=== PATIENT | male | born 1950 | race Caucasian/White ===

== ENCOUNTER 2022-08-19 20:30 | Inpatient (IN) | payer OTHER ==
[2022-08-19 21:06] VITALS: BMI 22.9
[2022-08-19 22:08] LABS: BASO % 0.9 % (0-2.0); EOS % 2.7 % (0-4.5); HEMATOCRIT 33.5 % (35.4-49); LYMPH % 6.4 % (8-40); MCHC 32.9 g/dl (32.0-35.9); MEAN CELL VOLUME 88.1 fl (80-96); MEAN PLT VOLUME 9.4 fl (7.5-11.1); MONO % 8.4 % (3.8-10.2); NEUT % 81.6 % (42.8-82.8); PLATELET COUNT 175 10^3/uL (134-434); RDW 18.6 % (11.9-15.9); WHITE BLOOD COUNT 9.6 K/mm3 (4.0-10.0)
[2022-08-19 22:18] LABS: CHLORIDE 97 mmol/L (98-107); SODIUM 136 mmol/L (136-145)
[2022-08-19 22:21] LABS: ALBUMIN 3.1 g/dl (3.4-5.0); ANION GAP 13 MMOL/L (8-16); BLOOD UREA NITROGEN 58.5 mg/dL (7-18); CALCIUM 8.2 mg/dL (8.5-10.1); CO2 27 mmol/L (21-32)
[2022-08-19 22:22] LABS: GLUCOSE,RANDOM 113 mg/dL (74-106)
[2022-08-19 22:23] LABS: CREATININE 3.6 mg/dL (0.55-1.3); SGPT/ALT 52 U/L (13-61)
[2022-08-19 22:25] LABS: SGOT/AST 61 U/L (15-37)
[2022-08-19 22:26] LABS: BILIRUBIN,TOTAL 1.6 mg/dL (0.2-1); TOT PROT 7.8 g/dl (6.4-8.2)
[2022-08-19 22:27] LABS: ALK PHOS 198 U/L (45-117)
[2022-08-20] MEDS ORDERED: ASPIRIN 81 MG CHEWABLE TABLETS PO ONE (00:13)
[2022-08-20 02:26] LABS: INR 1.19 (0.83-1.09); PROTHROMBIN TIME (PATIENT) 13.7 SEC (9.7-13.0)
[2022-08-20 02:29] LABS: ACTIVATED PTT 26.4 SECONDS (25.2-36.5)
[2022-08-20] MEDS ORDERED: METOPROLOL TARTRATE 50 MG TABLET (FP) ONE (05:09)
[2022-08-20] MEDS: METOPROLOL TARTRATE 25 MG TABLET (FP) GT SCH ×3 (05:26→21:34)
[2022-08-20 06:13] LABS: BASO % 1.3 % (0-2.0); EOS % 4.4 % (0-4.5); HEMATOCRIT 34.8 % (35.4-49); HEMOGLOBIN 11.2 GM/dL (11.7-16.9); LYMPH % 6.3 % (8-40); MCH 28.4 pg (25.7-33.7); MCHC 32.1 g/dl (32.0-35.9); MEAN CELL VOLUME 88.5 fl (80-96); MEAN PLT VOLUME 9.7 fl (7.5-11.1); MONO % 8.5 % (3.8-10.2); NEUT % 79.5 % (42.8-82.8); PLATELET COUNT 196 10^3/uL (134-434); RBC 3.94 M/mm3 (4.00-5.60); RDW 18.7 % (11.9-15.9); WHITE BLOOD COUNT 8.8 K/mm3 (4.0-10.0)
[2022-08-20 07:17] LABS: CO2 23 mmol/L (21-32); GLUCOSE,RANDOM 122 mg/dL (74-106); MAGNESIUM 2.8 mg/dL (1.8-2.4)
[2022-08-20 07:27] LABS: ALK PHOS 184 U/L (45-117); ANION GAP 15 MMOL/L (8-16); BILIRUBIN,TOTAL 1.3 mg/dL (0.2-1); CALCIUM 8.1 mg/dL (8.5-10.1); CHLORIDE 100 mmol/L (98-107); CHOLESTEROL 166 mg/dL (50-200); HDL CHOLESTEROL 34 mg/dL (40-60); LDL CHOLESTEROL (ONLY SJRH) 114 mg/dL (5-100); PHOSPHOROUS 5.2 mg/dL (2.5-4.9); SGOT/AST 54 U/L (15-37); SGPT/ALT 46 U/L (13-61); SODIUM 138 mmol/L (136-145); TOT PROT 7.6 g/dl (6.4-8.2); TRIGLYCERIDES 195 mg/dL (0-150)
[2022-08-20] MEDS ORDERED: APIXABAN 2.5 MG TABLET ONE (09:16)
[2022-08-20] MEDS ORDERED: METOPROLOL TARTRATE 25 MG TABLET (FP) ONE ×2 (09:16→10:34)
[2022-08-20] MEDS ORDERED: PANTOPRAZOLE SODIUM 40 MG VIAL ONE (09:17)
[2022-08-20] MEDS ORDERED: ASPIRIN 81 MG CHEWABLE TABLETS ONE (09:17)
[2022-08-20] MEDS: ASPIRIN 81 MG CHEWABLE TABLETS GT SCH (09:32)
[2022-08-20] MEDS: APIXABAN 2.5 MG TABLET GT SCH ×2 (09:32→21:35)
[2022-08-20] MEDS: PANTOPRAZOLE SODIUM 40 MG VIAL IVPUSH SCH (09:33)
[2022-08-20] MEDS: SEVELAMER CARBONATE 0.8 GM POWDER PACKET GT SCH (12:37)
[2022-08-20] MEDS ORDERED: QUEtiapine FUMARATE 25 MG TABLET ONE (21:15)
[2022-08-20] MEDS: MELATONIN 5 MG TABLETS PO SCH (21:35)
[2022-08-20] MEDS: QUEtiapine FUMARATE 50 MG TABLET GT SCH (21:35)
[2022-08-20 22:13] LABS: EPI CELLS 6 /uL (0-25.1); HYALINE CASTS 1 /uL (0-3.1); URINE APPEARANCE CLEAR; URINE BACTERIA 24 /uL (0-1359); URINE BILIRUBIN NEGATIVE (NEGATIVE); URINE COLOR YELLOW; URINE GLUCOSE (UA) NEGATIVE (NEGATIVE); URINE KETONE NEGATIVE (NEGATIVE); URINE LEUK ESTERASE NEGATIVE (NEGATIVE); URINE NITRITE NEGATIVE (NEGATIVE); URINE PROTEIN 2+ (NEGATIVE); URINE UROBILINOGEN 0.2 mg/dL (0.2-1.0); URINE WBC 45 /uL (0-25.8)
[2022-08-20 22:31] LABS: URINE RBC 21.9 /uL (0-23.9); YEAST PRESENT (NEGATIVE)
[2022-08-21] MEDS: METOPROLOL TARTRATE 25 MG TABLET (FP) GT SCH ×2 (09:55→23:03)
[2022-08-21] MEDS: PANTOPRAZOLE SODIUM 40 MG VIAL IVPUSH SCH (09:55)
[2022-08-21] MEDS: SEVELAMER CARBONATE 0.8 GM POWDER PACKET GT SCH (09:55)
[2022-08-21] MEDS: APIXABAN 2.5 MG TABLET GT SCH ×2 (09:55→23:03)
[2022-08-21] MEDS: ASPIRIN 81 MG CHEWABLE TABLETS GT SCH (09:55)
[2022-08-21] MEDS ORDERED: MODAFINIL 200 MG PO SCH (10:00)
[2022-08-21] MEDS: CEFTRIAXONE 1 GM in DEXTROSE 5%-WATER - 50 ML IVPB SCH (10:40)
[2022-08-21] MEDS ORDERED: LEVALBUTEROL HCL 0.63 MG/3 ML VIAL.NEB. IH PRN (11:45)
[2022-08-21 12:53] LABS: CALCIUM 8.1 mg/dL (8.5-10.1)
[2022-08-21 12:57] LABS: BILIRUBIN,TOTAL 1.2 mg/dL (0.2-1); CREATININE 5.1 mg/dL (0.55-1.3); TOT PROT 7.4 g/dl (6.4-8.2)
[2022-08-21 13:06] LABS: BLOOD UREA NITROGEN 96.6 mg/dL (7-18)
[2022-08-21] MEDS ORDERED: EPOETIN ALFA-EPBX 4,000 UNIT/ML VIAL SQ ONE (17:07)
[2022-08-21] MEDS ORDERED: SODIUM CHLORIDE 250 ML IV PRN (17:07)
[2022-08-21] MEDS ORDERED: QUEtiapine FUMARATE 25 MG TABLET ONE (22:32)
[2022-08-21] MEDS: QUEtiapine FUMARATE 50 MG TABLET GT SCH (23:03)
[2022-08-21] MEDS: MELATONIN 5 MG TABLETS PO SCH (23:03)
[2022-08-21] MEDS: ATORVASTATIN CA 40 MG TABLET (FP) PO SCH (23:03)
[2022-08-22 08:50] LABS: HEMATOCRIT 32.5 % (35.4-49); HEMOGLOBIN 10.7 GM/dL (11.7-16.9); MCH 29.1 pg (25.7-33.7); MCHC 32.9 g/dl (32.0-35.9); MEAN CELL VOLUME 88.5 fl (80-96); MEAN PLT VOLUME 9.6 fl (7.5-11.1); PLATELET COUNT 245 10^3/uL (134-434); RBC 3.67 M/mm3 (4.00-5.60); RDW 18.8 % (11.9-15.9); WHITE BLOOD COUNT 8.8 K/mm3 (4.0-10.0)
[2022-08-22 09:15] LABS: CHLORIDE 100 mmol/L (98-107); SODIUM 139 mmol/L (136-145)
[2022-08-22 09:25] LABS: ALBUMIN 3.1 g/dl (3.4-5.0); ANION GAP 18 MMOL/L (8-16); CALCIUM 8.3 mg/dL (8.5-10.1); CO2 22 mmol/L (21-32); GLUCOSE,RANDOM 136 mg/dL (74-106)
[2022-08-22 09:28] LABS: CREATININE 5.6 mg/dL (0.55-1.3); SGOT/AST 46 U/L (15-37); SGPT/ALT 44 U/L (13-61)
[2022-08-22 09:30] LABS: TOT PROT 7.3 g/dl (6.4-8.2)
[2022-08-22 09:31] LABS: BILIRUBIN,TOTAL 1.2 mg/dL (0.2-1)
[2022-08-22 09:32] LABS: ALK PHOS 176 U/L (45-117)
[2022-08-22 09:38] LABS: BLOOD UREA NITROGEN 108.4 mg/dL (7-18)
[2022-08-22] MEDS: AMINO ACIDS/PROTEIN HYDROLYS 30 ML LIQUID.PKT PO SCH (10:19)
[2022-08-22] MEDS: CEFTRIAXONE 1 GM in DEXTROSE 5%-WATER - 50 ML IVPB SCH (10:19)
[2022-08-22] MEDS: SEVELAMER CARBONATE 0.8 GM POWDER PACKET GT SCH (10:20)
[2022-08-22] MEDS: METOPROLOL TARTRATE 25 MG TABLET (FP) GT SCH ×2 (10:20→22:06)
[2022-08-22] MEDS: ASPIRIN 81 MG CHEWABLE TABLETS GT SCH (10:20)
[2022-08-22] MEDS: APIXABAN 2.5 MG TABLET GT SCH ×2 (10:20→22:06)
[2022-08-22] MEDS: PANTOPRAZOLE SODIUM 40 MG VIAL IVPUSH SCH (10:20)
[2022-08-22] MEDS ORDERED: QUEtiapine FUMARATE 25 MG TABLET ONE (22:04)
[2022-08-22] MEDS: QUEtiapine FUMARATE 50 MG TABLET GT SCH (22:06)
[2022-08-22] MEDS: ATORVASTATIN CA 40 MG TABLET (FP) PO SCH (22:06)
[2022-08-23] MEDS: MELATONIN 5 MG TABLETS PO SCH ×2 (00:18→21:25)
[2022-08-23 09:01] LABS: BASO % 0.9 % (0-2.0); EOS % 4.1 % (0-4.5); HEMOGLOBIN 11.2 GM/dL (11.7-16.9); LYMPH % 5.5 % (8-40); MCH 28.2 pg (25.7-33.7); MEAN CELL VOLUME 88.2 fl (80-96); MEAN PLT VOLUME 9.5 fl (7.5-11.1); MONO % 7.8 % (3.8-10.2); NEUT % 81.7 % (42.8-82.8); PLATELET COUNT 283 10^3/uL (134-434); RBC 3.97 M/mm3 (4.00-5.60); RDW 18.3 % (11.9-15.9); WHITE BLOOD COUNT 9.9 K/mm3 (4.0-10.0)
[2022-08-23 09:12] LABS: CALCIUM 8.6 mg/dL (8.5-10.1)
[2022-08-23 09:13] LABS: ALBUMIN 3.4 g/dl (3.4-5.0); MAGNESIUM 2.6 mg/dL (1.8-2.4)
[2022-08-23 09:16] LABS: CREATININE 3.9 mg/dL (0.55-1.3); PHOSPHOROUS 3.8 mg/dL (2.5-4.9)
[2022-08-23 09:17] LABS: BILIRUBIN,TOTAL 1.3 mg/dL (0.2-1); TOT PROT 8.1 g/dl (6.4-8.2)
[2022-08-23 09:37] LABS: BLOOD UREA NITROGEN 65.3 mg/dL (7-18)
[2022-08-23] MEDS: ASPIRIN 81 MG CHEWABLE TABLETS GT SCH (09:59)
[2022-08-23] MEDS: PANTOPRAZOLE SODIUM 40 MG VIAL IVPUSH SCH (09:59)
[2022-08-23] MEDS: AMINO ACIDS/PROTEIN HYDROLYS 30 ML LIQUID.PKT PO SCH (09:59)
[2022-08-23] MEDS: CEFTRIAXONE 1 GM in DEXTROSE 5%-WATER - 50 ML IVPB SCH (09:59)
[2022-08-23] MEDS: SEVELAMER CARBONATE 0.8 GM POWDER PACKET GT SCH (09:59)
[2022-08-23] MEDS: APIXABAN 2.5 MG TABLET GT SCH ×2 (09:59→21:25)
[2022-08-23] MEDS: METOPROLOL TARTRATE 25 MG TABLET (FP) GT SCH ×2 (09:59→21:25)
[2022-08-23] MEDS ORDERED: SODIUM CHLORIDE 250 ML IV PRN (15:05)
[2022-08-23] MEDS ORDERED: QUEtiapine FUMARATE 25 MG TABLET ONE (20:33)
[2022-08-23] MEDS: ATORVASTATIN CA 40 MG TABLET (FP) PO SCH (21:25)
[2022-08-23] MEDS: QUEtiapine FUMARATE 50 MG TABLET GT SCH (21:25)
[2022-08-24 09:30] LABS: BASO % 0.6 % (0-2.0); EOS % 4.2 % (0-4.5); HEMATOCRIT 33.9 % (35.4-49); HEMOGLOBIN 10.9 GM/dL (11.7-16.9); LYMPH % 5.2 % (8-40); MCH 28.2 pg (25.7-33.7); MEAN CELL VOLUME 87.9 fl (80-96); MEAN PLT VOLUME 9.4 fl (7.5-11.1); MONO % 6.7 % (3.8-10.2); NEUT % 83.3 % (42.8-82.8); PLATELET COUNT 295 10^3/uL (134-434); RBC 3.86 M/mm3 (4.00-5.60); RDW 18.4 % (11.9-15.9); WHITE BLOOD COUNT 12.3 K/mm3 (4.0-10.0)
[2022-08-24] MEDS: AMINO ACIDS/PROTEIN HYDROLYS 30 ML LIQUID.PKT PO SCH (09:48)
[2022-08-24] MEDS: SEVELAMER CARBONATE 0.8 GM POWDER PACKET GT SCH (10:01)
[2022-08-24] MEDS: PANTOPRAZOLE SODIUM 40 MG VIAL IVPUSH SCH (10:01)
[2022-08-24] MEDS: APIXABAN 2.5 MG TABLET GT SCH ×2 (10:01→22:31)
[2022-08-24] MEDS: ASPIRIN 81 MG CHEWABLE TABLETS GT SCH (10:01)
[2022-08-24] MEDS: METOPROLOL TARTRATE 25 MG TABLET (FP) GT SCH ×2 (10:01→22:31)
[2022-08-24 10:59] LABS: ALBUMIN 3.2 g/dl (3.4-5.0); CALCIUM 8.8 mg/dL (8.5-10.1); MAGNESIUM 2.6 mg/dL (1.8-2.4)
[2022-08-24 11:02] LABS: PHOSPHOROUS 2.8 mg/dL (2.5-4.9)
[2022-08-24 11:03] LABS: CREATININE 4.5 mg/dL (0.55-1.3)
[2022-08-24 11:05] LABS: BLOOD UREA NITROGEN 98.7 mg/dL (7-18); TOT PROT 7.7 g/dl (6.4-8.2)
[2022-08-24] MEDS ORDERED: QUEtiapine FUMARATE 25 MG TABLET ONE (22:15)
[2022-08-24] MEDS: QUEtiapine FUMARATE 50 MG TABLET GT SCH (22:31)
[2022-08-24] MEDS: ATORVASTATIN CA 40 MG TABLET (FP) PO SCH (22:31)
[2022-08-24] MEDS: MELATONIN 5 MG TABLETS PO SCH (22:31)
[2022-08-25 07:48] LABS: BASO % 1.3 % (0-2.0); EOS % 5.2 % (0-4.5); HEMATOCRIT 33.3 % (35.4-49); HEMOGLOBIN 10.7 GM/dL (11.7-16.9); LYMPH % 5.6 % (8-40); MCH 28.7 pg (25.7-33.7); MCHC 32.1 g/dl (32.0-35.9); MEAN CELL VOLUME 89.4 fl (80-96); MEAN PLT VOLUME 9.7 fl (7.5-11.1); MONO % 7.4 % (3.8-10.2); NEUT % 80.5 % (42.8-82.8); PLATELET COUNT 286 10^3/uL (134-434); RBC 3.73 M/mm3 (4.00-5.60); RDW 18.4 % (11.9-15.9); WHITE BLOOD COUNT 10.8 K/mm3 (4.0-10.0)
[2022-08-25] MEDS: AMINO ACIDS/PROTEIN HYDROLYS 30 ML LIQUID.PKT PO SCH (08:02)
[2022-08-25 08:07] LABS: MAGNESIUM 2.3 mg/dL (1.8-2.4)
[2022-08-25 08:09] LABS: CREATININE 3.3 mg/dL (0.55-1.3); PHOSPHOROUS 3.5 mg/dL (2.5-4.9)
[2022-08-25 08:12] LABS: BILIRUBIN,TOTAL 0.9 mg/dL (0.2-1)
[2022-08-25 08:13] LABS: TOT PROT 7.3 g/dl (6.4-8.2)
[2022-08-25 08:14] LABS: BLOOD UREA NITROGEN 62.1 mg/dL (7-18)
[2022-08-25] MEDS: METOPROLOL TARTRATE 25 MG TABLET (FP) GT SCH ×2 (10:01→22:25)
[2022-08-25] MEDS: PANTOPRAZOLE SODIUM 40 MG VIAL IVPUSH SCH (10:01)
[2022-08-25] MEDS: ASPIRIN 81 MG CHEWABLE TABLETS GT SCH (10:02)
[2022-08-25] MEDS: SEVELAMER CARBONATE 0.8 GM POWDER PACKET GT SCH (10:02)
[2022-08-25] MEDS: APIXABAN 2.5 MG TABLET GT SCH ×2 (10:02→22:26)
[2022-08-25] MEDS: ZINC SULFATE 220 MG CAPSULE (FP) PO SCH (15:24)
[2022-08-25] MEDS: VITAMIN B COMP W-C 1 EA TABLET (NEPHRO-VITE) PO SCH (15:24)
[2022-08-25] MEDS ORDERED: QUEtiapine FUMARATE 25 MG TABLET ONE (20:07)
[2022-08-25] MEDS: ATORVASTATIN CA 40 MG TABLET (FP) PO SCH (22:25)
[2022-08-25] MEDS: MELATONIN 5 MG TABLETS PO SCH (22:26)
[2022-08-25] MEDS: QUEtiapine FUMARATE 50 MG TABLET GT SCH (22:26)
[2022-08-26 09:39] LABS: EOS % 6.9 % (0-4.5); HEMATOCRIT 34.4 % (35.4-49); HEMOGLOBIN 10.9 GM/dL (11.7-16.9); LYMPH % 5.7 % (8-40); MCH 28.3 pg (25.7-33.7); MCHC 31.7 g/dl (32.0-35.9); MEAN CELL VOLUME 89.2 fl (80-96); MONO % 6.9 % (3.8-10.2); NEUT % 79.5 % (42.8-82.8); PLATELET COUNT 289 10^3/uL (134-434); RBC 3.86 M/mm3 (4.00-5.60); RDW 18.4 % (11.9-15.9); WHITE BLOOD COUNT 10.9 K/mm3 (4.0-10.0)
[2022-08-26 09:56] LABS: ALBUMIN 3.3 g/dl (3.4-5.0); CALCIUM 8.8 mg/dL (8.5-10.1); MAGNESIUM 2.4 mg/dL (1.8-2.4)
[2022-08-26 09:59] LABS: CREATININE 3.7 mg/dL (0.55-1.3); PHOSPHOROUS 3.4 mg/dL (2.5-4.9)
[2022-08-26] MEDS: AMINO ACIDS/PROTEIN HYDROLYS 30 ML LIQUID.PKT PO SCH (10:00)
[2022-08-26] MEDS: PANTOPRAZOLE SODIUM 40 MG VIAL IVPUSH SCH (10:00)
[2022-08-26] MEDS: ASPIRIN 81 MG CHEWABLE TABLETS GT SCH (10:00)
[2022-08-26] MEDS: METOPROLOL TARTRATE 25 MG TABLET (FP) GT SCH ×2 (10:00→22:19)
[2022-08-26] MEDS: ZINC SULFATE 220 MG CAPSULE (FP) PO SCH (10:00)
[2022-08-26] MEDS: SEVELAMER CARBONATE 0.8 GM POWDER PACKET GT SCH (10:00)
[2022-08-26 10:01] LABS: BILIRUBIN,TOTAL 1.1 mg/dL (0.2-1); TOT PROT 7.5 g/dl (6.4-8.2)
[2022-08-26] MEDS: VITAMIN B COMP W-C 1 EA TABLET (NEPHRO-VITE) PO SCH (10:01)
[2022-08-26] MEDS: APIXABAN 2.5 MG TABLET GT SCH ×2 (10:01→22:19)
[2022-08-26 10:06] LABS: BLOOD UREA NITROGEN 91.7 mg/dL (7-18)
[2022-08-26] MEDS ORDERED: SODIUM CHLORIDE 250 ML IV PRN (12:18)
[2022-08-26] MEDS ORDERED: EPOETIN ALFA-EPBX 4,000 UNIT/ML VIAL IVPUSH ONE (13:00)
[2022-08-26] MEDS ORDERED: QUEtiapine FUMARATE 25 MG TABLET ONE (21:02)
[2022-08-26] MEDS: MELATONIN 5 MG TABLETS PO SCH (22:19)
[2022-08-26] MEDS: ATORVASTATIN CA 40 MG TABLET (FP) PO SCH (22:19)
[2022-08-26] MEDS: QUEtiapine FUMARATE 50 MG TABLET GT SCH (22:19)
[2022-08-27 08:39] LABS: BASO % 1.3 % (0-2.0); EOS % 4.8 % (0-4.5); HEMATOCRIT 35.4 % (35.4-49); HEMOGLOBIN 11.3 GM/dL (11.7-16.9); LYMPH % 7.7 % (8-40); MCH 28.6 pg (25.7-33.7); MEAN CELL VOLUME 89.5 fl (80-96); MEAN PLT VOLUME 10.2 fl (7.5-11.1); MONO % 7.6 % (3.8-10.2); NEUT % 78.6 % (42.8-82.8); PLATELET COUNT 284 10^3/uL (134-434); RBC 3.96 M/mm3 (4.00-5.60); RDW 17.8 % (11.9-15.9); WHITE BLOOD COUNT 9.9 K/mm3 (4.0-10.0)
[2022-08-27 08:54] LABS: CALCIUM 8.9 mg/dL (8.5-10.1)
[2022-08-27 08:55] LABS: ALBUMIN 3.3 g/dl (3.4-5.0)
[2022-08-27 08:58] LABS: CREATININE 2.7 mg/dL (0.55-1.3); PHOSPHOROUS 3.3 mg/dL (2.5-4.9)
[2022-08-27 08:59] LABS: BILIRUBIN,TOTAL 1.1 mg/dL (0.2-1); TOT PROT 7.9 g/dl (6.4-8.2)
[2022-08-27 09:06] LABS: BLOOD UREA NITROGEN 50.6 mg/dL (7-18)
[2022-08-27] MEDS: ZINC SULFATE 220 MG CAPSULE (FP) PO SCH (09:50)
[2022-08-27] MEDS: AMINO ACIDS/PROTEIN HYDROLYS 30 ML LIQUID.PKT PO SCH (09:50)
[2022-08-27] MEDS: SEVELAMER CARBONATE 0.8 GM POWDER PACKET GT SCH (09:50)
[2022-08-27] MEDS: PANTOPRAZOLE SODIUM 40 MG VIAL IVPUSH SCH (09:50)
[2022-08-27] MEDS: METOPROLOL TARTRATE 25 MG TABLET (FP) GT SCH ×2 (09:51→21:56)
[2022-08-27] MEDS: ASPIRIN 81 MG CHEWABLE TABLETS GT SCH (09:51)
[2022-08-27] MEDS: APIXABAN 2.5 MG TABLET GT SCH ×2 (09:51→21:57)
[2022-08-27] MEDS: VITAMIN B COMP W-C 1 EA TABLET (NEPHRO-VITE) PO SCH (09:51)
[2022-08-27] MEDS ORDERED: QUEtiapine FUMARATE 25 MG TABLET ONE (21:52)
[2022-08-27] MEDS: ATORVASTATIN CA 40 MG TABLET (FP) PO SCH (21:56)
[2022-08-27] MEDS: MELATONIN 5 MG TABLETS PO SCH (21:57)
[2022-08-27] MEDS: QUEtiapine FUMARATE 50 MG TABLET GT SCH (21:57)
[2022-08-28 08:32] LABS: BASO % 1.3 % (0-2.0); HEMATOCRIT 33.8 % (35.4-49); HEMOGLOBIN 10.7 GM/dL (11.7-16.9); LYMPH % 7.5 % (8-40); MCHC 31.6 g/dl (32.0-35.9); MEAN CELL VOLUME 88.7 fl (80-96); MEAN PLT VOLUME 10.3 fl (7.5-11.1); MONO % 7.9 % (3.8-10.2); NEUT % 78.3 % (42.8-82.8); PLATELET COUNT 254 10^3/uL (134-434); RBC 3.82 M/mm3 (4.00-5.60); RDW 18.3 % (11.9-15.9); WHITE BLOOD COUNT 9.6 K/mm3 (4.0-10.0)
[2022-08-28 09:11] LABS: ALBUMIN 3.1 g/dl (3.4-5.0); CALCIUM 8.5 mg/dL (8.5-10.1)
[2022-08-28 09:12] LABS: BLOOD UREA NITROGEN 71.3 mg/dL (7-18); MAGNESIUM 2.1 mg/dL (1.8-2.4)
[2022-08-28 09:15] LABS: CREATININE 3.2 mg/dL (0.55-1.3); PHOSPHOROUS 3.9 mg/dL (2.5-4.9)
[2022-08-28 09:16] LABS: TOT PROT 7.4 g/dl (6.4-8.2)
[2022-08-28] MEDS: SEVELAMER CARBONATE 0.8 GM POWDER PACKET GT SCH (10:18)
[2022-08-28] MEDS: PANTOPRAZOLE SODIUM 40 MG VIAL IVPUSH SCH (10:18)
[2022-08-28] MEDS: METOPROLOL TARTRATE 25 MG TABLET (FP) GT SCH ×2 (10:18→23:10)
[2022-08-28] MEDS: AMINO ACIDS/PROTEIN HYDROLYS 30 ML LIQUID.PKT PO SCH (10:18)
[2022-08-28] MEDS: APIXABAN 2.5 MG TABLET GT SCH ×2 (10:19→23:10)
[2022-08-28] MEDS: ZINC SULFATE 220 MG CAPSULE (FP) PO SCH (10:19)
[2022-08-28] MEDS: ASPIRIN 81 MG CHEWABLE TABLETS GT SCH (10:19)
[2022-08-28] MEDS: VITAMIN B COMP W-C 1 EA TABLET (NEPHRO-VITE) PO SCH (10:19)
[2022-08-28] MEDS ORDERED: QUEtiapine FUMARATE 25 MG TABLET ONE (22:53)
[2022-08-28] MEDS: QUEtiapine FUMARATE 50 MG TABLET GT SCH (23:10)
[2022-08-28] MEDS: MELATONIN 5 MG TABLETS PO SCH (23:10)
[2022-08-28] MEDS: ATORVASTATIN CA 40 MG TABLET (FP) PO SCH (23:10)
[2022-08-29] MEDS: METOPROLOL TARTRATE 25 MG TABLET (FP) GT SCH ×2 (09:20→21:22)
[2022-08-29] MEDS: ZINC SULFATE 220 MG CAPSULE (FP) PO SCH (09:24)
[2022-08-29] MEDS: SEVELAMER CARBONATE 0.8 GM POWDER PACKET GT SCH (09:24)
[2022-08-29] MEDS: AMINO ACIDS/PROTEIN HYDROLYS 30 ML LIQUID.PKT PO SCH (09:24)
[2022-08-29] MEDS: APIXABAN 2.5 MG TABLET GT SCH ×2 (09:25→21:22)
[2022-08-29] MEDS: VITAMIN B COMP W-C 1 EA TABLET (NEPHRO-VITE) PO SCH (09:25)
[2022-08-29] MEDS: ASPIRIN 81 MG CHEWABLE TABLETS GT SCH (09:25)
[2022-08-29 09:29] LABS: BASO % 1.9 % (0-2.0); EOS % 5.5 % (0-4.5); HEMATOCRIT 32.8 % (35.4-49); HEMOGLOBIN 10.4 GM/dL (11.7-16.9); LYMPH % 8.2 % (8-40); MCH 27.9 pg (25.7-33.7); MCHC 31.7 g/dl (32.0-35.9); MEAN CELL VOLUME 87.8 fl (80-96); MEAN PLT VOLUME 10.3 fl (7.5-11.1); MONO % 7.5 % (3.8-10.2); NEUT % 76.9 % (42.8-82.8); PLATELET COUNT 271 10^3/uL (134-434); RBC 3.74 M/mm3 (4.00-5.60); RDW 17.8 % (11.9-15.9); WHITE BLOOD COUNT 9.2 K/mm3 (4.0-10.0)
[2022-08-29 09:58] LABS: BLOOD UREA NITROGEN 80.6 mg/dL (7-18); CALCIUM 8.4 mg/dL (8.5-10.1); PHOSPHOROUS 3.8 mg/dL (2.5-4.9)
[2022-08-29 09:59] LABS: ALBUMIN 2.9 g/dl (3.4-5.0); MAGNESIUM 1.9 mg/dL (1.8-2.4)
[2022-08-29 10:01] LABS: CREATININE 3.1 mg/dL (0.55-1.3)
[2022-08-29] MEDS: PANTOPRAZOLE SODIUM 40 MG VIAL IVPUSH SCH (10:33)
[2022-08-29] MEDS ORDERED: QUEtiapine FUMARATE 25 MG TABLET ONE (20:39)
[2022-08-29] MEDS: ATORVASTATIN CA 40 MG TABLET (FP) PO SCH (21:22)
[2022-08-29] MEDS: MELATONIN 5 MG TABLETS PO SCH (21:22)
[2022-08-29] MEDS: QUEtiapine FUMARATE 50 MG TABLET GT SCH (21:23)
[2022-08-30 02:01] VITALS: RESP 18
[2022-08-30] MEDS: AMINO ACIDS/PROTEIN HYDROLYS 30 ML LIQUID.PKT PO SCH (08:56)
[2022-08-30 09:03] VITALS: BP 98/70; PULSE 112; TEMP 98
[2022-08-30] MEDS: METOPROLOL TARTRATE 25 MG TABLET (FP) GT SCH (09:54)
[2022-08-30] MEDS: VITAMIN B COMP W-C 1 EA TABLET (NEPHRO-VITE) PO SCH (09:55)
[2022-08-30] MEDS: ASPIRIN 81 MG CHEWABLE TABLETS GT SCH (09:55)
[2022-08-30] MEDS: ZINC SULFATE 220 MG CAPSULE (FP) PO SCH (09:55)
[2022-08-30] MEDS: SEVELAMER CARBONATE 0.8 GM POWDER PACKET GT SCH (09:55)
[2022-08-30] MEDS: APIXABAN 2.5 MG TABLET GT SCH (09:55)
[2022-08-30] MEDS: PANTOPRAZOLE SODIUM 40 MG VIAL IVPUSH SCH (09:56)
[2022-08-30] MEDS ORDERED: NYSTATIN 500,000 UNITS/5 ML SUSPENSION PO SCH (18:00)
== END 2022-08-30 14:03 | DRG 70 ==
LOC: JER 20:30 → JERBED 23:28 → J4S 08-20 17:38
PROVIDERS: ADMIT Internal Medicine; ATTEND Internal Medicine
PROC: 5A1D70Z Performance of Urinary Filtration, Intermittent, Less than 6 Hours Per Day (ICD-10-PCS; principal; 2022-08-22)
PROC: 5A1D70Z Performance of Urinary Filtration, Intermittent, Less than 6 Hours Per Day (ICD-10-PCS; 2022-08-24)
PROC: 5A1D70Z Performance of Urinary Filtration, Intermittent, Less than 6 Hours Per Day (ICD-10-PCS; 2022-08-26)
PROC: 5A1D70Z Performance of Urinary Filtration, Intermittent, Less than 6 Hours Per Day (ICD-10-PCS; 2022-08-29)
DX: G93.49 Other encephalopathy (principal); N18.6 End stage renal disease; D68.61 Antiphospholipid syndrome; L89.153 Pressure ulcer of sacral region, stage 3; L89.312 Pressure ulcer of right buttock, stage 2; I27.82 Chronic pulmonary embolism; I48.92 Unspecified atrial flutter; N17.9 Acute kidney failure, unspecified; I13.2 Hypertensive heart and chronic kidney disease with heart failure and with stage 5 chronic kidney disease, or end stage renal disease; I50.32 Chronic diastolic (congestive) heart failure; R77.8 Other specified abnormalities of plasma proteins; I25.10 Atherosclerotic heart disease of native coronary artery without angina pectoris; I48.91 Unspecified atrial fibrillation; R13.19 Other dysphagia; N40.0 Benign prostatic hyperplasia without lower urinary tract symptoms; I44.39 Other atrioventricular block; G72.89 Other specified myopathies; Z85.46 Personal history of malignant neoplasm of prostate; Z93.0 Tracheostomy status; Z95.1 Presence of aortocoronary bypass graft; Z99.2 Dependence on renal dialysis
CPT/HCPCS: 0241U-QW; 36415; 70450-TC; 71045-TC-FY; 74230-TC-FY; 76705-TC; 80053; 80061; 81003; 83735; 84100; 84443; 84484; 85025; 85027; 85610; 85730; 86803; 87086; 87186; 87340; 92611-GN; 93005; 93010; 93306-TC; 97161-GP; 99285-25; C9803-CS; Q5106; U0003; U0005

== ENCOUNTER 2022-11-15 07:56 | Day surgery (SDC) | payer OTHER ==
[2022-11-10 14:49] VITALS: BMI 22.3
[2022-11-15 08:39] VITALS: TEMP 97.8
[2022-11-15 10:01] VITALS: BP 98/58; PULSE 80; RESP 18
== END 2022-11-15 10:04 | disposition home or self-care (01) ==
LOC: FASU-ENDO 07:56
PROVIDERS: ATTEND Internal Medicine Gastroenterology
PROC: 0DJD8ZZ Inspection of Lower Intestinal Tract, Via Natural or Artificial Opening Endoscopic (ICD-10-PCS; principal; 2022-11-15 09:07)
DX: K92.1 Melena (principal); K64.1 Second degree hemorrhoids; K57.30 Diverticulosis of large intestine without perforation or abscess without bleeding

== ENCOUNTER 2022-11-30 21:11 | Inpatient (IN) | payer OTHER ==
[2022-11-30] MEDS ORDERED: SODIUM CHLORIDE 1,000 ML IV SCH (21:45)
[2022-11-30 22:20] LABS: BASO % 0.1 % (0-2.0); EOS % 0.2 % (0-4.5); HEMATOCRIT 34.7 % (35.4-49); HEMOGLOBIN 11.3 GM/dL (11.7-16.9); LYMPH % 0.9 % (8-40); MCH 28.4 pg (25.7-33.7); MCHC 32.5 g/dl (32.0-35.9); MEAN CELL VOLUME 87.3 fl (80-96); MEAN PLT VOLUME 9.7 fl (7.5-11.1); MONO % 2.3 % (3.8-10.2); NEUT % 96.5 % (42.8-82.8); PLATELET COUNT 159 10^3/uL (134-434); RBC 3.97 M/mm3 (4.00-5.60); RDW 16.5 % (11.9-15.9)
[2022-11-30 22:49] LABS: ANISOCYTOSIS 2+; INR 1.65 (0.83-1.09); MACROCYTOSIS 0; OVALOCYTE 1+; PROTHROMBIN TIME (PATIENT) 19.1 SEC (9.7-13.0)
[2022-11-30 22:49] LABS: ALBUMIN 3.1 g/dl (3.4-5.0); BILIRUBIN,TOTAL 1.1 mg/dL (0.2-1); BLOOD UREA NITROGEN 56.7 mg/dL (7-18); CALCIUM 9.2 mg/dL (8.5-10.1); CREATININE 3.1 mg/dL (0.55-1.3); MAGNESIUM 1.8 mg/dL (1.8-2.4); PHOSPHOROUS 1.8 mg/dL (2.5-4.9); TOT PROT 6.7 g/dl (6.4-8.2)
[2022-12-01 00:13] LABS: ARTERIAL BLD GAS O2 SATURATION 97.1 % (95-98); ARTERIAL BLOOD GAS BASE EXCESS 0 mmol/L (-2-2); ARTERIAL BLOOD GAS PO2 80.1 mmHg (80-100); ARTERIAL BLOOD GAS pH 7.529 (7.350-7.450)
[2022-12-01 00:48] LABS: LACTIC ACID 5.5 mmol/L (0.4-2.0)
[2022-12-01] MEDS ORDERED: PIPERACILLIN/TAZOB 4.5 GM 4.5 GM in DEXTROSE 5%-WATER 100 ML IVPB ONE (01:00)
[2022-12-01] MEDS ORDERED: VANCOMYCIN 1 GM in D5W (PRE-DOCKED) 1,000 MG/250 ML IVPB ONE (01:00)
[2022-12-01] MEDS ORDERED: ACETAMINOPHEN 1000 MG/100 ML BAG IVPB ONE (01:06)
[2022-12-01] MEDS ORDERED: ACETAMINOPHEN INJECTION 100 ML IVPB ONE (01:08)
[2022-12-01] MEDS ORDERED: SODIUM CHLORIDE 0.9% 500 ML INFUS.BAG IV ONE ×2 (01:18→02:28)
[2022-12-01] MEDS ORDERED: VANCOMYCIN/WATER FOR INJ (PEG) 1,000 MG/200 ML BAG IVPB ONE ×2 (01:24→13:16)
[2022-12-01] MEDS ORDERED: PIPERACILLIN/TAZOB 4.5 GM 4.5 GM/100 ML BAG IVPB ONE (02:26)
[2022-12-01] MEDS ORDERED: SODIUM CHLORIDE 500 ML IV STA (02:28)
[2022-12-01 02:36] LABS: EPI CELLS 16 /uL (0-25.1); HYALINE CASTS 3 /uL (0-3.1); URINE APPEARANCE CLOUDY; URINE BACTERIA 0 /uL (0-1359); URINE BILIRUBIN NEGATIVE (NEGATIVE); URINE COLOR DK YELLOW; URINE GLUCOSE (UA) NEGATIVE (NEGATIVE); URINE KETONE TRACE (NEGATIVE); URINE LEUK ESTERASE 1+ (NEGATIVE); URINE NITRITE NEGATIVE (NEGATIVE); URINE PROTEIN 2+ (NEGATIVE); URINE WBC 55 /uL (0-25.8)
[2022-12-01] MEDS ORDERED: NOREPINEPHRINE BITARTRATE 4 MG/4 ML ML IV ONE (03:38)
[2022-12-01] MEDS: NOREPINEPHRINE BITARTRATE 4,000 MCG in DEXTROSE 5%-WATER - 496 ML IV SCH (03:49)
[2022-12-01 05:24] LABS: LACTIC ACID 4.3 mmol/L (0.4-2.0)
[2022-12-01 06:44] VITALS: BMI 21.0
[2022-12-01 07:37] LABS: YEAST NONE SEEN (NEGATIVE)
[2022-12-01] MEDS ORDERED: ACETAMINOPHEN 1000 MG/100 ML BAG IVPB PRN (07:50)
[2022-12-01] MEDS: SODIUM CHLORIDE 0.9% 500 ML INFUS.BAG IV ONE ×2 (09:39→10:20)
[2022-12-01] MEDS: MUPIROCIN 2% TOPICAL OINTMENT FOR DECOLONIZATION NS SCH ×2 (09:40→21:16)
[2022-12-01] MEDS: PANTOPRAZOLE SODIUM 40 MG VIAL IVPUSH SCH (09:40)
[2022-12-01] MEDS ORDERED: FLU VACC QS2022-23(6MOS UP)/PF 60 MCG/0.5 ML SYRINGE IM ONE (10:00)
[2022-12-01] MEDS ORDERED: PIPERACILLIN/TAZOB 2.25 GM 2.25 GM in DEXTROSE 5%-WATER - 50 ML IVPB ONE (10:00)
[2022-12-01] MEDS ORDERED: PNEUMOC 20-VAL CONJ-DIP CRM/PF 0.5 ML SYRINGE IM ONE (10:00)
[2022-12-01 12:50] LABS: HEMATOCRIT 29.7 % (35.4-49); HEMOGLOBIN 9.8 GM/dL (11.7-16.9); MCH 29.3 pg (25.7-33.7); MCHC 32.9 g/dl (32.0-35.9); MEAN CELL VOLUME 89.2 fl (80-96); MEAN PLT VOLUME 10.5 fl (7.5-11.1); PLATELET COUNT 128 10^3/uL (134-434); RBC 3.33 M/mm3 (4.00-5.60); RDW 16.8 % (11.9-15.9); WHITE BLOOD COUNT 6.4 K/mm3 (4.0-10.0)
[2022-12-01 13:12] LABS: CALCIUM 8.2 mg/dL (8.5-10.1)
[2022-12-01 13:13] LABS: BLOOD UREA NITROGEN 68.8 mg/dL (7-18); MAGNESIUM 1.8 mg/dL (1.8-2.4)
[2022-12-01 13:16] LABS: CREATININE 3.8 mg/dL (0.55-1.3); PHOSPHOROUS 4.5 mg/dL (2.5-4.9)
[2022-12-01 13:17] LABS: BILIRUBIN,TOTAL 1.6 mg/dL (0.2-1)
[2022-12-01 13:18] LABS: TOT PROT 5.7 g/dl (6.4-8.2)
[2022-12-01 13:22] LABS: ALBUMIN 2.5 g/dl (3.4-5.0)
[2022-12-01] MEDS: HEPARIN NA (PORCINE) 5,000 UNITS/ML 1ML VIAL SQ SCH ×2 (13:38→21:21)
[2022-12-01 13:59] LABS: ANISOCYTOSIS 0; HELMET CELLS 0; HOWELL-JOLLY BODIES 0; MACROCYTOSIS 0; OVALOCYTE 0; ROULEAU 0; SICKELED CELLS 0; TARGET CELLS 0; TEAR DROP CELLS 0; TOXIC GRANULATION 0
[2022-12-01] MEDS: PIPERACILLIN/TAZOB 2.25 GM 2.25 GM in DEXTROSE 5%-WATER - 50 ML IVPB SCH (17:36)
[2022-12-01] MEDS: CHLORHEXIDINE GLUCONATE 4% CLEANSER FOR DECOLONIZATION TP SCH (21:16)
[2022-12-02] MEDS: PIPERACILLIN/TAZOB 2.25 GM 2.25 GM in DEXTROSE 5%-WATER - 50 ML IVPB SCH ×3 (02:11→17:11)
[2022-12-02] MEDS: NOREPINEPHRINE BITARTRATE 4,000 MCG in DEXTROSE 5%-WATER - 496 ML IV SCH ×2 (06:53→10:13)
[2022-12-02] MEDS: HEPARIN NA (PORCINE) 5,000 UNITS/ML 1ML VIAL SQ SCH (06:54)
[2022-12-02] MEDS ORDERED: EPOETIN ALFA-EPBX 2,000 UNIT/ML VIAL SQ ONE (07:00)
[2022-12-02] MEDS ORDERED: SODIUM CHLORIDE 250 ML IV PRN (07:00)
[2022-12-02 07:22] LABS: BASO % 0.6 % (0-2.0); EOS % 9.4 % (0-4.5); HEMATOCRIT 28.8 % (35.4-49); HEMOGLOBIN 9.3 GM/dL (11.7-16.9); LYMPH % 2.4 % (8-40); MCHC 32.2 g/dl (32.0-35.9); MONO % 3.7 % (3.8-10.2); NEUT % 83.9 % (42.8-82.8); PLATELET COUNT 112 10^3/uL (134-434); RBC 3.31 M/mm3 (4.00-5.60); RDW 16.6 % (11.9-15.9)
[2022-12-02 07:45] LABS: ALBUMIN 2.3 g/dl (3.4-5.0); BLOOD UREA NITROGEN 69.2 mg/dL (7-18); MAGNESIUM 1.9 mg/dL (1.8-2.4)
[2022-12-02 07:48] LABS: CREATININE 3.3 mg/dL (0.55-1.3); PHOSPHOROUS 3.3 mg/dL (2.5-4.9)
[2022-12-02 07:49] LABS: TOT PROT 5.4 g/dl (6.4-8.2)
[2022-12-02 07:50] LABS: BILIRUBIN,TOTAL 1.3 mg/dL (0.2-1)
[2022-12-02] MEDS: PANTOPRAZOLE SODIUM 40 MG VIAL IVPUSH SCH (11:47)
[2022-12-02] MEDS: MUPIROCIN 2% TOPICAL OINTMENT FOR DECOLONIZATION NS SCH ×2 (11:47→22:14)
[2022-12-02] MEDS ORDERED: DAPTOMYCIN 700 MG in SODIUM CHLORIDE 50 ML IVPB ONE ×2 (15:30→16:00)
[2022-12-02] MEDS: VANCOMYCIN 250 MG/5 ML ORAL SOLUTION PO SCH (17:26)
[2022-12-02] MEDS: APIXABAN 2.5 MG TABLET PO SCH (22:15)
[2022-12-02] MEDS: CHLORHEXIDINE GLUCONATE 4% CLEANSER FOR DECOLONIZATION TP SCH (22:15)
[2022-12-03] MEDS: VANCOMYCIN 250 MG/5 ML ORAL SOLUTION PO SCH ×4 (00:15→17:14)
[2022-12-03] MEDS: PIPERACILLIN/TAZOB 2.25 GM 2.25 GM in DEXTROSE 5%-WATER - 50 ML IVPB SCH ×3 (02:22→17:42)
[2022-12-03 07:16] LABS: BASO % 0.5 % (0-2.0); EOS % 10.4 % (0-4.5); HEMATOCRIT 27.7 % (35.4-49); HEMOGLOBIN 8.9 GM/dL (11.7-16.9); LYMPH % 7.5 % (8-40); MCH 27.9 pg (25.7-33.7); MCHC 32.3 g/dl (32.0-35.9); MEAN CELL VOLUME 86.4 fl (80-96); MEAN PLT VOLUME 11.4 fl (7.5-11.1); MONO % 5.3 % (3.8-10.2); NEUT % 76.3 % (42.8-82.8); PLATELET COUNT 101 10^3/uL (134-434); RDW 16.6 % (11.9-15.9); WHITE BLOOD COUNT 4.3 K/mm3 (4.0-10.0)
[2022-12-03 07:34] LABS: CALCIUM 8.4 mg/dL (8.5-10.1)
[2022-12-03 07:35] LABS: ALBUMIN 2.2 g/dl (3.4-5.0); MAGNESIUM 1.9 mg/dL (1.8-2.4)
[2022-12-03 07:38] LABS: CREATININE 2.3 mg/dL (0.55-1.3); PHOSPHOROUS 1.8 mg/dL (2.5-4.9)
[2022-12-03 07:40] LABS: BILIRUBIN,TOTAL 1.2 mg/dL (0.2-1); TOT PROT 5.4 g/dl (6.4-8.2)
[2022-12-03 07:46] LABS: BLOOD UREA NITROGEN 34.6 mg/dL (7-18)
[2022-12-03] MEDS: MUPIROCIN 2% TOPICAL OINTMENT FOR DECOLONIZATION NS SCH ×2 (09:25→21:29)
[2022-12-03] MEDS: PANTOPRAZOLE SODIUM 40 MG VIAL IVPUSH SCH (09:25)
[2022-12-03] MEDS: APIXABAN 2.5 MG TABLET PO SCH ×2 (09:25→21:29)
[2022-12-03] MEDS ORDERED: SODIUM PHOSPHATE - 0 MM in SODIUM CHLORIDE 250 ML IVPB ONE (10:46)
[2022-12-03] MEDS ORDERED: SODIUM PHOSPHATE - 15 MM in SODIUM CHLORIDE 250 ML IVPB ONE (12:00)
[2022-12-03] MEDS ORDERED: VANCOMYCIN 1 GM in D5W (PRE-DOCKED) 1,000 MG/250 ML IVPB ONE (13:17)
[2022-12-03] MEDS ORDERED: VANCOMYCIN/WATER FOR INJ (PEG) 1,000 MG/200 ML BAG IVPB ONE (14:00)
[2022-12-03] MEDS ORDERED: CHLORHEXIDINE GLUCONATE 4% CLEANSER FOR DECOLONIZATION TP SCH (22:00)
[2022-12-04] MEDS: VANCOMYCIN 250 MG/5 ML ORAL SOLUTION PO SCH ×3 (00:50→12:00)
[2022-12-04] MEDS: PIPERACILLIN/TAZOB 2.25 GM 2.25 GM in DEXTROSE 5%-WATER - 50 ML IVPB SCH ×2 (02:17→10:23)
[2022-12-04 06:26] VITALS: RESP 22
[2022-12-04 07:45] LABS: BASO % 0.5 % (0-2.0); EOS % 12.2 % (0-4.5); HEMATOCRIT 28.8 % (35.4-49); HEMOGLOBIN 9.4 GM/dL (11.7-16.9); LYMPH % 6.4 % (8-40); MCHC 32.5 g/dl (32.0-35.9); MEAN CELL VOLUME 86.2 fl (80-96); MEAN PLT VOLUME 10.5 fl (7.5-11.1); MONO % 6.5 % (3.8-10.2); NEUT % 74.4 % (42.8-82.8); PLATELET COUNT 102 10^3/uL (134-434); RBC 3.34 M/mm3 (4.00-5.60); RDW 16.3 % (11.9-15.9); WHITE BLOOD COUNT 5.9 K/mm3 (4.0-10.0)
[2022-12-04 08:00] LABS: CALCIUM 8.2 mg/dL (8.5-10.1)
[2022-12-04 08:01] LABS: ALBUMIN 2.2 g/dl (3.4-5.0); BLOOD UREA NITROGEN 37.4 mg/dL (7-18); MAGNESIUM 1.8 mg/dL (1.8-2.4)
[2022-12-04 08:03] LABS: CREATININE 2.4 mg/dL (0.55-1.3)
[2022-12-04 08:04] LABS: PHOSPHOROUS 2.1 mg/dL (2.5-4.9)
[2022-12-04 08:05] LABS: BILIRUBIN,TOTAL 1.1 mg/dL (0.2-1); TOT PROT 5.6 g/dl (6.4-8.2)
[2022-12-04] MEDS: APIXABAN 2.5 MG TABLET PO SCH (10:23)
[2022-12-04] MEDS: MUPIROCIN 2% TOPICAL OINTMENT FOR DECOLONIZATION NS SCH (10:24)
[2022-12-04] MEDS ORDERED: GENTAMICIN 80 MG PREMIXED IVPB 80 MG/100 ML BAG IVPB ONE (10:34)
[2022-12-04] MEDS ORDERED: NAPH,MB-DB/K PH,MBDB POWDER PACKET PO ONE (11:04)
[2022-12-04] MEDS: DAPTOMYCIN 680 MG in SODIUM CHLORIDE 50 ML IVPB ONE ×2 (11:55→14:13)
[2022-12-04 12:12] LABS: LACTIC ACID 2.7 mmol/L (0.4-2.0)
[2022-12-04 17:11] VITALS: BP 110/74; PULSE 78; TEMP 98.4
== END 2022-12-04 17:21 | disposition short-term general hospital (02) | DRG 871 ==
LOC: JER 21:11 → JERBED 12-01 01:34 → JICU 12-01 06:25 → J2W 12-03 18:55
PROVIDERS: ADMIT Internal Medicine Pulmonary Disease
PROC: 06HM33Z Insertion of Infusion Device into Right Femoral Vein, Percutaneous Approach (ICD-10-PCS; principal; 2022-11-30)
PROC: 5A1D70Z Performance of Urinary Filtration, Intermittent, Less than 6 Hours Per Day (ICD-10-PCS; 2022-12-01)
PROC: 02HV33Z Insertion of Infusion Device into Superior Vena Cava, Percutaneous Approach (ICD-10-PCS; 2022-12-02)
PROC: B548ZZA Ultrasonography of Superior Vena Cava, Guidance (ICD-10-PCS; 2022-12-02)
DX: A41.9 Sepsis, unspecified organism (principal); G93.41 Metabolic encephalopathy; J18.9 Pneumonia, unspecified organism; N18.6 End stage renal disease; R65.21 Severe sepsis with septic shock; I13.2 Hypertensive heart and chronic kidney disease with heart failure and with stage 5 chronic kidney disease, or end stage renal disease; I50.22 Chronic systolic (congestive) heart failure; I48.92 Unspecified atrial flutter; D68.61 Antiphospholipid syndrome; E87.20 Acidosis, unspecified; N39.0 Urinary tract infection, site not specified; T82.7XXA Infection and inflammatory reaction due to other cardiac and vascular devices, implants and grafts, initial encounter; A04.72 Enterocolitis due to Clostridium difficile, not specified as recurrent; I38 Endocarditis, valve unspecified; I25.10 Atherosclerotic heart disease of native coronary artery without angina pectoris; F31.9 Bipolar disorder, unspecified; Z99.2 Dependence on renal dialysis; I25.2 Old myocardial infarction; I35.0 Nonrheumatic aortic (valve) stenosis; D64.9 Anemia, unspecified; Z93.1 Gastrostomy status; D69.6 Thrombocytopenia, unspecified; Z95.2 Presence of prosthetic heart valve; Y83.8 Other surgical procedures as the cause of abnormal reaction of the patient, or of later complication, without mention of misadventure at the time of the procedure; I48.0 Paroxysmal atrial fibrillation; Z85.46 Personal history of malignant neoplasm of prostate
CPT/HCPCS: 0241U-QW; 36415; 36600; 70450-TC; 71045-TC-FY; 71250-TC; 72125-TC; 72131-TC; 74018-TC-FY; 74176-TC; 80053; 80061; 81003; 82140; 82272; 82550; 82728; 82803; 82962; 83036; 83540; 83550; 83605; 83735; 84100; 84436; 84443; 84484; 85025; 85610; 85730; 86803; 86850; 86900; 86901; 87040; 87045; 87046; 87077; 87086; 87186; 87324; 87340; 87449; 90677; 93005; 93010; 93306-TC; 97161-GP; 99285-25; G0480; J0878; J1644; Q5106